=== PATIENT | male | born 1990 | race Two or more races ===

== ENCOUNTER 2023-05-06 03:51 | Emergency (ER) | payer SELFPAY ==
[~2023-05-06] VITALS: Ht 180.3 cm; Wt 88.1 kg
[2023-05-06] MEDS ORDERED: BUPRENORPHINE -NALOXONE 8-2mg SL TAB SL ONE (04:15)
[2023-05-06 04:45] LABS: Amphetamine Screen, Urine Pos (NEGATIVE); Barbiturate Scree,Urine Neg (NEGATIVE); Benzodiazephine Screen, Urine Neg (NEGATIVE); Cocaine Screen, Urine Neg (NEGATIVE); Opiate Scree,Urine Neg (NEGATIVE)
[2023-05-06 04:46] LABS: Cannabinoid Screen, Urine Pos (NEGATIVE); Phencyclidine Screen, Urine Neg (NEGATIVE)
[2023-05-06 07:00] VITALS: BP 120/67; PULSE 98; RESP 18; TEMP 97.6; O2SAT 98
[2023-05-06] MEDS ORDERED: KETOROLAC TROMETH 60MG/2ML VIAL IM ONE (07:15)
[2023-05-06] MEDS ORDERED: PROMETHAZINE HCL 25 MG/ML 1ML IM ONE (07:15)
[2023-05-06] MEDS ORDERED: ZOFR4T PO (07:24)
== END 2023-05-06 07:24 | disposition home or self-care (01) ==
LOC: ER 03:51
DX: F19.139 Other psychoactive substance abuse with withdrawal, unspecified (principal)
CPT/HCPCS: 80307; 96372; 99284; J1885; J2550

== ENCOUNTER 2023-12-27 03:49 | Emergency (ER) | payer MEDICAID, OTHER ==
[~2023-12-27] VITALS: Ht 177.8 cm; Wt 84.2 kg
[~2023-12-27 03:49] MED LIST: ZOFR4T PO
[2023-12-27 04:06] VITALS: BP 136/94; PULSE 86; RESP 19; TEMP 97.5
[2023-12-27] MEDS ORDERED: IBUP-1456 PO (04:40)
[2023-12-27 04:53] VITALS: O2SAT 100
[2023-12-27] MEDS: KETOROLAC TROMETH 60MG/2ML VIAL IM ONE (05:33)
== END 2023-12-27 06:15 | disposition home or self-care (01) ==
LOC: ER 03:55
DX: G44.209 Tension-type headache, unspecified, not intractable (principal); F15.10 Other stimulant abuse, uncomplicated
CPT/HCPCS: 70450; 96372; 99285; J1885

== ENCOUNTER 2024-01-01 02:33 | Emergency (ER) | payer MEDICAID ==
[~2024-01-01] VITALS: Ht 177.8 cm; Wt 85.0 kg
[~2024-01-01 02:33] MED LIST changes: +IBUP-1456 PO
[2024-01-01 02:57] VITALS: BP 151/102; PULSE 114; RESP 18; O2SAT 98
== END 2024-01-01 08:31 | disposition left against medical advice (07) ==
LOC: EDBD 02:33 → ER 02:33
DX: R51.9 Headache, unspecified (principal); Z53.21 Procedure and treatment not carried out due to patient leaving prior to being seen by health care provider

== ENCOUNTER 2024-01-12 04:33 | Emergency (ER) | payer MEDICAID ==
[~2024-01-12] VITALS: Ht 177.8 cm; Wt 81.8 kg
[2024-01-12 04:55] VITALS: BP 116/76; PULSE 113; RESP 14; O2SAT 97
[2024-01-12] MEDS ORDERED: IBUP-1456 PO (06:34)
[2024-01-12] MEDS ORDERED: AMOX875T3 PO (06:34)
== END 2024-01-12 06:41 | disposition home or self-care (01) ==
LOC: ER 04:33
DX: H66.92 Otitis media, unspecified, left ear (principal); F12.10 Cannabis abuse, uncomplicated; F15.10 Other stimulant abuse, uncomplicated

== ENCOUNTER 2024-01-13 21:35 | Emergency (ER) | payer MEDICAID ==
[~2024-01-13] VITALS: Ht 177.8 cm; Wt 82.9 kg
[~2024-01-13 21:35] MED LIST changes: +AMOX875T3 PO
[2024-01-13 22:05] VITALS: BP 134/93; PULSE 113; RESP 18; O2SAT 97
== END 2024-01-14 00:28 | disposition home or self-care (01) ==
LOC: ER 21:35
DX: F22 Delusional disorders (principal); F41.9 Anxiety disorder, unspecified; F20.9 Schizophrenia, unspecified; F15.90 Other stimulant use, unspecified, uncomplicated; Z79.899 Other long term (current) drug therapy

== ENCOUNTER 2024-01-23 20:09 | Emergency (ER) | payer MEDICAID ==
[~2024-01-23] VITALS: Ht 177.8 cm; Wt 86.5 kg
[2024-01-23] MEDS ORDERED: IBUP1TAB4 PO (23:33)
[2024-01-23] MEDS: KETOROLAC TROMETH 30 MG/ML 1ML VIAL IM ONE (23:36)
[2024-01-23 23:43] VITALS: BP 107/65; PULSE 64; RESP 16; TEMP 98.3; O2SAT 99
== END 2024-01-23 23:46 | disposition home or self-care (01) ==
LOC: ER 20:10
DX: S00.412A Abrasion of left ear, initial encounter (principal); F12.10 Cannabis abuse, uncomplicated; F15.10 Other stimulant abuse, uncomplicated; F41.9 Anxiety disorder, unspecified; F20.9 Schizophrenia, unspecified; X58.XXXA Exposure to other specified factors, initial encounter; Y93.89 Activity, other specified; Y92.89 Other specified places as the place of occurrence of the external cause; Y99.8 Other external cause status
CPT/HCPCS: 96372; 99283; J1885

== ENCOUNTER 2024-02-11 20:49 | Emergency (ER) | payer MEDICAID ==
[~2024-02-11] VITALS: Ht 177.8 cm; Wt 84.5 kg
[~2024-02-11 20:49] MED LIST changes: +IBUP1TAB4 PO
[2024-02-11 21:04] VITALS: BP 113/79; PULSE 84; RESP 16; TEMP 97.9; O2SAT 100
[2024-02-11] MEDS ORDERED: METH4PAK PO (22:20)
[2024-02-11] MEDS ORDERED: OFL50TS OT (22:20)
== END 2024-02-11 22:20 | disposition home or self-care (01) ==
LOC: ER 20:49
DX: H60.92 Unspecified otitis externa, left ear (principal); F12.90 Cannabis use, unspecified, uncomplicated; F15.90 Other stimulant use, unspecified, uncomplicated; Z79.899 Other long term (current) drug therapy

== ENCOUNTER 2024-02-23 05:49 | Emergency (ER) | payer MEDICAID ==
[~2024-02-23] VITALS: Ht 177.8 cm; Wt 83.8 kg
[~2024-02-23 05:49] MED LIST changes: +METH4PAK PO
[2024-02-23 05:55] VITALS: BP 117/82; PULSE 96; RESP 18; TEMP 97.8; O2SAT 98
== END 2024-02-23 06:54 | disposition home or self-care (01) ==
LOC: ER 05:49
DX: H66.92 Otitis media, unspecified, left ear (principal); F41.9 Anxiety disorder, unspecified; F20.9 Schizophrenia, unspecified; F15.90 Other stimulant use, unspecified, uncomplicated; Z79.899 Other long term (current) drug therapy

== ENCOUNTER 2024-04-08 10:55 | Emergency (ER) | payer SELFPAY ==
[~2024-04-08] VITALS: Ht 177.8 cm; Wt 81.9 kg
[2024-04-08 11:29] VITALS: BP 113/75; PULSE 75; RESP 18; TEMP 98.4; O2SAT 100
[2024-04-08] MEDS: LORazepam 0.5 MG TAB PO ONE (11:46)
== END 2024-04-08 11:45 | disposition home or self-care (01) ==
LOC: ER 10:55
DX: F41.9 Anxiety disorder, unspecified (principal); F20.9 Schizophrenia, unspecified; F12.90 Cannabis use, unspecified, uncomplicated; Z79.899 Other long term (current) drug therapy; Z79.1 Long term (current) use of non-steroidal anti-inflammatories (NSAID)

== ENCOUNTER 2024-05-02 06:20 | Emergency (ER) | payer MEDICAID ==
[~2024-05-02] VITALS: Ht 180.3 cm; Wt 81.8 kg
--- NOTE | 2024-05-02 07:03 | ED.PDOC ---
Back pain HPI HPI Comments THIS IS A PLEASANT 34-YEAR-OLD GENTLEMAN THAT PRESENTS WITH A CHIEF COMPLAINT OF GENERALIZED MYALGIA. UNKNOWN CAUSE. DENIES TRAUMA INJURY. DENIES HAVING ANY SYMPTOMS BEFORE. SYMPTOMS STARTED YESTERDAY. HAS NOT TRIED MEDICATIONS FOR THE SYMPTOMS LISTED ABOVE. PAIN IS RATED MODERATE. DENIES ANY OTHER COMPLAINT OR CONCERN. DENIES FEVERS CHILLS NAUSEA VOMITING DIARRHEA. Chief Complaint: Body Pain Time Seen by MD: 07:00 Primary Care Provider: UNKNOWN Reviewed Notes: Nurses Notes, Medications, Allergies Allergies: Coded Allergies: NO KNOWN ALLERGIES (Unverified , 05/06/23) Home Meds Active Scripts Amoxicillin Trihydrate (Amoxicillin) 875 Mg Tab, 1 TAB PO BID, #20 TAB Prov:AGUILAR ZARCO 02/23/24 Methylprednisolone (Medrol Dosepak) 4 Mg Madhav, 4 MG PO UD, #21 TAB UAD Prov:DANA KAPLANP 02/11/24 Ibuprofen Micronized (Ibuprofen) 400 Mg Tab, 400 MG PO Q4HPRN PRN, #20 TAB Prov:BELINDA BORGES PAC 01/23/24 Ibuprofen (Ibuprofen) 800 Mg Tab, 1 TAB PO TID, #24 TAB Prov:AGUILAR ZARCO 01/12/24 Amoxicillin Trihydrate (Amoxicillin) 875 Mg Tab, 1 TAB PO BID, #20 TAB Prov:AGUILAR ZARCO 01/12/24 Ibuprofen (Ibuprofen) 800 Mg Tab, 1 TAB PO TID PRN, #30 TAB 0 Refills Prov:NEEMA BLANCO 12/27/23 Ondansetron Odt 4MG Tab (ZOFRAN PO) 4 Mg Tb, 4 MG PO BID, #14 TAB ODT TAB-DISSOLVE IN MOUTH, THEN SWALLOW Prov:AGUILAR ZARCO 05/06/23 Information Source: Patient Mode of Arrival: Ambulatory Past Medical History PAST MEDICAL HISTORY: Anxiety, Schizophrenia Surgical History: Denies all surgeries Family History Family History: Reviewed,noncontributory to illness Social History Smoker: Non-Smoker Alcohol: Denies ETOH Use Drugs: Marijuana, Methamphetamine Lives In: Home All Other Systems: Reviewed and Negative (PER HPI) Physical Exam General Appearance: No Apparent Distress, Normal HEENT: Normal ENT Inspection, Pharynx Normal, TMs Normal Neck: Full Range of Motion, Non-Tender, Normal, Normal Inspection Respiratory: Chest Non-Tender, Lungs Clear, No Accessory Muscle Use, No Respiratory Distress, Normal Breath Sounds Cardiovascular: No Edema, No JVD, No Murmur, No Gallop, Normal Peripheral Pulses, Regular Rate/Rhythm Breast Exam: Deferred Gastrointestinal: No Organomegaly, Non Tender, No Pulsatile Mass, Normal Bowel Sounds, Soft Genitalia: Deferred Pelvic: Deferred Rectal: Deferred Extremities: No calf tenderness, Normal capillary refill, Normal inspection, Normal range of motion, Non-tender, No pedal edema Musculoskeletal : Apperance: Normal 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 Was a procedure done?: No Back Pain Differential Dx Differential Diagnosis: Fracture, Musculoskeletal Pain, Other X-Ray, Labs, Meds, VS Vital Signs Date Time Temp Pulse Resp B/P (MAP) Pulse Ox O2 Delivery O2 Flow Rate FiO2 05/02/24 07:58 97.7 112 20 126/56 (79) 96 97.7 05/02/24 06:37 97.7 112 20 122/56 (78) 96 Time of 1ST Reevaluation: 07:02 Reevaluation 1ST: Improved Patient Education/Counseling: Diagnosis, Treatment Family Education/Counseling: Diagnosis, Treatment Departure 1 Departure Time of Disposition: 08:25 Impression: Primary Impression: Eloped from emergency department Disposition: 01 HOME / SELF CARE / HOMELESS Condition: Stable Critical Care Note Critical Care Time?: No Stability Stability form required: No Heart Score Heart Score: Heart Score Response (Comments) Value History N/A 0 EKG N/A 0 Age N/A 0 Risk Factors N/A 0 Troponin N/A 0 Total 0 ARANZA TAYLOR NP May 02, 2024 07:03
[2024-05-02 07:58] VITALS: BP 126/56; PULSE 112; RESP 20; TEMP 97.7; O2SAT 96
== END 2024-05-02 08:35 | disposition left against medical advice (07) ==
LOC: ER 06:21
DX: M79.18 Myalgia, other site (principal); F20.9 Schizophrenia, unspecified; F41.9 Anxiety disorder, unspecified; Z79.899 Other long term (current) drug therapy